=== PATIENT | female | born 1985 | race Two or more races ===

== ENCOUNTER 2021-06-15 01:22 | Emergency (ER) | payer MEDICAID, OTHER ==
[~2021-06-15] VITALS: Ht 152.4 cm; Wt 54.4 kg
[2021-06-15 05:15] VITALS: BP 114/42
[2021-06-15] MEDS ORDERED: LORazepam 0.5 MG TAB PO ONE (06:15)
== END 2021-06-15 06:55 | disposition home or self-care (01) ==
LOC: ER 01:25
DX: F41.9 Anxiety disorder, unspecified (principal)

== ENCOUNTER 2021-06-27 19:44 | Emergency (ER) | payer MEDICAID ==
[~2021-06-27] VITALS: Ht 167.6 cm; Wt 65.8 kg
[2021-06-27 20:15] LABS: Urine Bacteria NONE SEEN /hpf (None Seen); Urine Blood Negative /uL (Negative); Urine Specific Gravity 1.013 (1.001-1.035); Urine WBC 6 /hpf (0 - 5)
[2021-06-27] MEDS ORDERED: LORazepam 0.5 MG TAB PO ONE (20:15)
[2021-06-27 20:26] LABS: Amphetamine Screen, Urine NEGATIVE (NEGATIVE); Barbiturate Scree,Urine NEGATIVE (NEGATIVE); Benzodiazephine Screen, Urine NEGATIVE (NEGATIVE); Cannabinoid Screen, Urine NEGATIVE (NEGATIVE); Cocaine Screen, Urine POSITIVE (NEGATIVE); Opiate Scree,Urine NEGATIVE (NEGATIVE); Phencyclidine Screen, Urine NEGATIVE (NEGATIVE)
[2021-06-27 21:01] VITALS: BP 124/77
== END 2021-06-27 21:02 | disposition home or self-care (01) ==
LOC: EDBD 19:44 → ER 19:44
DX: F41.9 Anxiety disorder, unspecified (principal)
CPT/HCPCS: 80307; 81001; 81025

== ENCOUNTER 2021-07-01 02:13 | Emergency (ER) | payer MEDICAID ==
[~2021-07-01] VITALS: Ht 167.6 cm; Wt 54.4 kg
[2021-07-01] MEDS ORDERED: LORazepam 2MG/ML-1ML VIAL IM ONE (02:45)
[2021-07-01] MEDS ORDERED: MORPHINE SULFATE 4 MG/ML SYR/VIAL IV ONE ×2 (04:00→09:00)
[2021-07-01] MEDS ORDERED: SODIUM CHLORIDE 0.9% 500 ML IV ONE (04:00)
[2021-07-01] MEDS ORDERED: ONDANSETRON HCL 4 MG/2 ML VIAL IV ONE ×2 (04:00→09:00)
[2021-07-01 04:31] LABS: Basophils # (auto) 0 10 ^3/uL (0-0.2); Basophils % (auto) 0.2 % (0.0-2.0); Eosinophils # (auto) 0.1 10 ^3/uL (0-0.8); Eosinophils % (auto) 0.5 % (0.0-7.0); Hematocrit 40.9 % (36.0-46.0); Hemoglobin 14.2 g/dL (12.2-16.2); Lymphocytes # (auto) 1.8 10 ^3/uL (0.4-5.4); Lymphocytes % (auto) 10.1 % (10.0-50.0); Mean Corpuscular Hemoglobin 29.5 pg (28.0-32.0); Mean Corpuscular Hgb Conc. 34.6 g/dL (32.0-36.0); Mean Corpuscular Volume 85.3 fL (80.0-100.0); Monocytes % (auto) 5.9 % (0.0-12.0); Neutrophils # (auto) 14.4 10 ^3/uL (1.6-8.6); Neutrophils % (auto) 83.3 % (37.0-80.0); Red Blood Cells 4.79 10^6/uL (4.0-5.20); Red Cell Distribution Width 13.8 % (11.8-14.3); White Blood Cell 17.3 10^3/uL (4.4-10.8)
[2021-07-01 04:48] LABS: INR 1.08 (0.9-1.15); Partial Thromboplastin Time 25.3 sec (23.6-33.0)
[2021-07-01 04:58] LABS: Anion Gap 9 (5-15); BUN/Creatinine Ratio 11.1; Blood Alcohol < 3.0 mg/dL (0-5); Blood Urea Nitrogen 11 mg/dL (7-18); Calcium 9.2 mg/dL (8.5-10.1); Carbon Dioxide 24 mmol/L (21-32); Chloride 106 mmol/L (98-107); GFR African American 81 mL/min; GFR Non-African American 67 mL/min; Glucose 105 mg/dL (74-106); Potassium 3.2 mmol/L (3.5-5.1); Sodium 139 mmol/L (136-145)
[2021-07-01] MEDS ORDERED: IOHEXOL 350 MG/ML 100ML IJ ONE (05:07)
[2021-07-01 05:32] LABS: Alanine Aminotransferase 21 U/L (13-56); Alkaline Phosphatase 94 U/L (45-117); Aspartate Aminotransferase 23 U/L (15-37); Bilirubin, Total 0.8 mg/dL (0.2-1.0); Total Protein 8.4 g/dL (6.4-8.2)
[2021-07-01 08:43] VITALS: BP 123/75
== END 2021-07-01 09:20 | disposition short-term general hospital (02) ==
LOC: EDBD 02:13 → ER 02:17
DX: S52.201A Unspecified fracture of shaft of right ulna, initial encounter for closed fracture (principal); S52.91XA Unspecified fracture of right forearm, initial encounter for closed fracture; S22.069A Unspecified fracture of T7-T8 vertebra, initial encounter for closed fracture; R51.9 Headache, unspecified; F12.10 Cannabis abuse, uncomplicated; F14.10 Cocaine abuse, uncomplicated; Z20.822 Contact with and (suspected) exposure to COVID-19; V09.29XA Pedestrian injured in traffic accident involving other motor vehicles, initial encounter; Y93.89 Activity, other specified; Y92.410 Unspecified street and highway as the place of occurrence of the external cause; Y99.8 Other external cause status
CPT/HCPCS: 36415; 70450; 71260; 72125; 73090; 74177; 80053; 80320; 84702; 85025; 85610; 85730; 86850; 86900; 86901; 87426; 93005; 96372; 96374; 96375; 99285; J2060; J2270; J2405; Q9967